=== PATIENT | female | born 1950 | race American Indian/Alaskan Native ===

== ENCOUNTER 2017-06-25 18:00 | Emergency (ER) | payer MEDICARE ==
[2017-06-25] MEDS ORDERED: DUONEB *Not for PRN Use IH ONE (18:10)
--- NOTE | 2017-06-25 18:12 | Emergency Department Report ---
Chief Complaint: Dyspnea/Respdistress Stated Complaint: SOB/CP Time Seen by Provider: 06/25/17 18:08 - HPI History of Present Illness: PT c/o cough x 1 month. PT states she is wheezing and out of her albuterol inhaler. - ROS Review of Systems: + chest pain + sob + wheezing - Exam Physical Exam: Obese female wheezing to left post lung, diminished lung sounds on the right tachycardia MSE screening note: Focused history and physical exam performed. Due to findings the following was ordered: ekg, labs, xr ED Disposition for MSE Condition: Stable
[2017-06-25 19:15] LABS: Basophils % (Auto) 0.8 % (0.0-1.8); Eosinophils % (Auto) 13.8 % (0.0-4.3); Hematocrit 39.8 % (30.3-42.9); Hemoglobin 13.2 gm/dl (10.1-14.3); Mean Corpuscular HGB Conc 33 % (30-34); Mean Corpuscular Hemoglobin 31 pg (28-32); Mean Corpuscular Volume 92 fl (79-97); Platelet Count 252 K/mm3 (140-440); Red Blood Count 4.32 M/mm3 (3.65-5.03); Red Cell Distribution Width 14.1 % (13.2-15.2); White Blood Count 12.8 K/mm3 (4.5-11.0)
[2017-06-25 19:24] LABS: INR 1.03 (0.87-1.13)
[2017-06-25 19:25] LABS: Partial Thromboplastin Time 29.2 Sec. (24.2-36.6)
[2017-06-25 19:35] LABS: Creatine Kinase MB 9.6 ng/mL (0.0-4.0)
[2017-06-25 19:36] LABS: Alanine Aminotransferase 71 units/L (7-56); Albumin 3.7 g/dL (3.9-5); Albumin/Globulin Ratio 0.9 %; Alkaline Phosphatase 82 units/L (35-129); Anion Gap 20 mmol/L; BUN/Creatinine Ratio 6.25; Blood Urea Nitrogen 5 mg/dL (7-17); Carbon Dioxide 23 mmol/L (22-30); Chloride 99.5 mmol/L (98-107); Creatine Kinase 620 units/L (30-135); Glucose 105 mg/dL (65-100); Potassium 3.8 mmol/L (3.6-5.0); Sodium 139 mmol/L (137-145); Total Protein 7.7 g/dL (6.3-8.2)
[2017-06-26] MEDS ORDERED: NACL 0.9% 500 ML 500 ML IV ONE (01:30)
[2017-06-26] MEDS ORDERED: PROVENTIL IH ONE (01:30)
--- NOTE | 2017-06-26 01:33 | Emergency Department Report ---
HPI - General Chief Complaint: Dyspnea/Respdistress Time Seen by Provider: 06/25/17 18:08 - HPI HPI: This is a 67 year-old female presents to the emergency department from home with complaint of some shortness of breath, wheezing and a productive cough. She says that has been going on for about one month. She went to her primary care clinic last week and was placed on some steroids and albuterol and says that she was doing better, but the symptoms returned about 4- 5 days ago. She denies any chest pain, nausea, vomiting, back pain or diaphoresis. She is a former smoker, having stopped about 3 months ago. No recent travel or sick contacts at home. She says that she has a history of hypertension and hyperlipidemia. ED Past Medical Hx - Past Medical History Hx Congestive Heart Failure: No Hx Diabetes: Yes (diet controlled) Hx Asthma: No Hx COPD: No Additional medical history: HIGH CHOLESTEROL - Surgical History Hx Breast Surgery: Yes (lumpectomy) - Social History Smoking Status: Former Smoker Substance Use Type: None, Alcohol - Medications Home Medications: Home Medications Medication Instructions Recorded Confirmed Last Taken Type Metoprolol [Lopressor] 12.5 mg PO BID 30 Days 07/14/15 Unknown Rx Pravastatin (Nf) [Pravachol] 20 mg PO QHS 30 Days 07/14/15 Unknown Rx traMADol [Ultram 50 MG tab] 50 - 100 mg PO Q8HR PRN #30 tablet 07/14/15 Unknown Rx ALBUTEROL Inhaler [ProAir HFA 2 puff IH QID PRN #1 inhalation 06/26/17 Unknown Rx Inhaler] Benzonatate [Tessalon Perles] 100 mg PO Q8HR #20 capsule 06/26/17 Unknown Rx guaiFENesin/CODEINE [Robitussin AC] 5 ml PO Q6H PRN #100 ml 06/26/17 Unknown Rx predniSONE [Deltasone] 20 mg PO BID #10 tab 06/26/17 Unknown Rx ED Review of Systems ROS: Stated complaint: SOB/CP Other details as noted in HPI Comment: All other systems reviewed and negative Constitutional: denies: chills, fever Eyes: denies: eye pain, eye discharge, vision change ENT: denies: ear pain, throat pain Respiratory: cough, shortness of breath, wheezing Cardiovascular: denies: chest pain, edema Gastrointestinal: denies: abdominal pain, nausea, diarrhea Genitourinary: denies: urgency, dysuria, discharge Musculoskeletal: denies: back pain, joint swelling, arthralgia Skin: denies: rash, lesions Neurological: denies: headache, weakness, paresthesias Physical Exam - Physical Exam Vital Signs: Vital Signs 06/25/17 06/26/17 18:09 00:09 Temperature 98.4 F Pulse Rate 111 H 106 H Respiratory 22 14 Rate Blood Pressure 136/79 140/78 O2 Sat by Pulse 94 90 Oximetry Physical Exam: GENERAL: The patient is well-developed well-nourished. HENT: Normocephalic. Atraumatic. Patient has moist mucous membranes. Oropharynx is clear. EYES: Extraocular motions are intact. Pupils equal reactive to light bilaterally. NECK: Supple. Trachea is midline. CHEST/LUNGS: Mild wheezing throughout the chest. There is no tachypnea or accessory muscle use. The patient has a hacking dry cough that occurs with coughing fits. There is no respiratory distress noted. HEART/CARDIOVASCULAR: Regular. There is no tachycardia. There is no gallop rub or murmur. ABDOMEN: Abdomen is soft, nontender. Patient has normal bowel sounds. There is no abdominal distention. SKIN: Skin is warm and dry. NEURO: The patient is awake, alert, and oriented. The patient is cooperative. The patient has no focal neurologic deficits. The patient has normal speech. MUSCULOSKELETAL: There is no tenderness or deformity. There is no limitation range of motion. There is no evidence of acute injury. ED Course Vital Signs 06/25/17 06/26/17 18:09 00:09 Temperature 98.4 F Pulse Rate 111 H 106 H Respiratory 22 14 Rate Blood Pressure 136/79 140/78 O2 Sat by Pulse 94 90 Oximetry ED Medical Decision Making - Lab Data Result diagrams: 06/25/17 18:50 06/25/17 18:50 - EKG Data -: EKG Interpreted by Ia EKG shows normal: sinus rhythm (with fusion complexes), axis, intervals, QRS complexes, ST-T waves (nonspecific T waves) Rate: tachycardia (105 bpm) - EKG Data When compared to previous EKG there are: previous EKG unavailable Interpretation: other (sinus rhythm with fusion complexes, nonspecific T waves, mild tachycardia with 105 bpm) - Radiology Data Radiology results: report reviewed, image reviewed interpreted by me: There is some mild hyperinflation of the lungs on chest x-ray but no obvious pneumonia, pleural effusion or pneumothorax. EXAM: CT ANGIO CHEST HISTORY: SOB, elevated dimer TECHNIQUE: CT imaging obtained through the chest in pulmonary angiographic phase following intravenous administration of contrast. Transaxial, Coronal and sagittal reformats with maximal intensity projections are provided. PRIORS: None. FINDINGS: Normal caliber main pulmonary artery. No central or segmental pulmonary embolism. No pericardial effusion. Thoracic aorta is normal in course and caliber. No periaortic fluid or stranding. No pneumothorax or effusion. Central airways are patent. Minimal suggested traction bronchiectasis in the lower lungs where there is also interlobular septal thickening and suggested subpleural cyst formation/early honeycombing, particularly in the anterior right middle lobe. No focal airspace disease. Biapical scarring. Mild centrilobular emphysema. Imaged portion of the upper abdomen is unremarkable. The superficial soft tissues are unremarkable. No acute bony abnormality or worrisome osseous lesions identified. IMPRESSION: No central or segmental pulmonary embolism. There are findings of chronic interstitial lung disease and possible early fibrosis. Pulmonology and imaging follow-up are recommended. - Medical Decision Making 67-year-old female presents with some shortness of breath, cough, wheezing that has been going on over the past few months but got worse over the past few days. She did better after she was on some steroids from her primary care physician. She has mild bronchospasm on physical exam. She does not appear to be in any respiratory distress but does have a severe hacking cough. Vital signs stable including being afebrile, no hypoxia. She was given steroids, breathing treatments and Robitussin-AC for cough. She had a slightly elevated and equivocal d-dimer so a CT angiography was done that showed some findings of chronic interstitial lung disease and/or early pulmonary fibrosis. She appears safe for discharge home at this time. She was given steroids, insulin Perles and Robitussin-AC for cough and refill of her albuterol. She was given multiple referrals for pulmonology and encouraged follow-up with primary care. She will return to the ER with any worsening of her symptoms or any acute distress. - Differential Diagnosis pneumonia, COPD, pulmonary fibrosis, CHF, PE Critical Care Time: No Critical care attestation.: If time is entered above; I have spent that time in minutes in the direct care of this critically ill patient, excluding procedure time. ED Disposition Clinical Impression: Bronchitis, Bronchospasm, Interstitial lung disease, Cough Disposition: DC-01 TO HOME OR SELFCARE Is pt being admited?: No Condition: Stable Instructions: Chronic Bronchitis (ED), Bronchospasm (ED) Additional Instructions: Please follow-up with your primary care physician and/or clinic. I would ask about switching from lisinopril as you are already dealing with a lingering cough and that medication has a known side effect of causing a cough. Return to the emergency Department with any worsening of her symptoms, development of chest pain, or any acute distress. One of the cough medications that I have prescribed for U has some codeine in it and therefore can be sedating. You have been prescribed a medication that is sedating and therefore should not be taken prior to driving, working, and responsible for children and in no way should be mixed with alcohol of any quantity. Prescriptions: ALBUTEROL Inhaler [ProAir HFA Inhaler] 2 puff IH QID PRN #1 inhalation PRN Reason: Shortness Of Breath Benzonatate [Tessalon Perles] 100 mg PO Q8HR #20 capsule guaiFENesin/CODEINE [Robitussin AC] 5 ml PO Q6H PRN #100 ml PRN Reason: Cough predniSONE [Deltasone] 20 mg PO BID #10 tab Referrals: PRIMARY CARE, [Primary Care Provider] - 3-5 Days ABI HEBERT MD [Staff Physician] - 3-5 Days MARILIN WILLIAMSON MD [Staff Physician] - 3-5 Days TORO HANCOCK MD [Staff Physician] - 3-5 Days Time of Disposition: 06:06
[2017-06-26 02:00] VITALS: BP 149/80
[2017-06-26] MEDS ORDERED: ROBITUSSIN AC PO ONE (02:29)
[2017-06-26] MEDS ORDERED: NACL ONE (03:32)
--- NOTE | 2017-06-26 05:26 | Cat Scan Report ---
FINAL REPORT EXAM: CT ANGIO CHEST HISTORY: SOB, elevated dimer TECHNIQUE: CT imaging obtained through the chest in pulmonary angiographic phase following intravenous administration of contrast. Transaxial, Coronal and sagittal reformats with maximal intensity projections are provided. PRIORS: None. FINDINGS: Normal caliber main pulmonary artery. No central or segmental pulmonary embolism. No pericardial effusion. Thoracic aorta is normal in course and caliber. No periaortic fluid or stranding. No pneumothorax or effusion. Central airways are patent. Minimal suggested traction bronchiectasis in the lower lungs where there is also interlobular septal thickening and suggested subpleural cyst formation/early honeycombing, particularly in the anterior right middle lobe. No focal airspace disease. Biapical scarring. Mild centrilobular emphysema. Imaged portion of the upper abdomen is unremarkable. The superficial soft tissues are unremarkable. No acute bony abnormality or worrisome osseous lesions identified. IMPRESSION: No central or segmental pulmonary embolism. There are findings of chronic interstitial lung disease and possible early fibrosis. Pulmonology and imaging follow-up are recommended.
--- NOTE | 2017-06-26 07:46 | XRay Report ---
ROUTINE CHEST, TWO VIEWS: HISTORY: Dyspnea. The trachea, heart, mediastinal contour, lung kwong and bony thorax are unremarkable. IMPRESSION: No acute cardiopulmonary process identified.
== END 2017-06-26 06:51 | disposition home or self-care (01) ==
LOC: ED 18:00
DX: J40 Bronchitis, not specified as acute or chronic (principal); J98.01 Acute bronchospasm; J84.9 Interstitial pulmonary disease, unspecified; E11.9 Type 2 diabetes mellitus without complications; E78.00 Pure hypercholesterolemia, unspecified; Z87.891 Personal history of nicotine dependence
CPT/HCPCS: 36415; 71020; 71275; 80053; 82550; 82553; 83880; 84484; 85025; 85379; 85610; 85730; 93005; 93010; 94640; 96361; 96374; 99284; J2930; J7040; Q9967